=== PATIENT | female | born 1990 | race Two or more races ===

== ENCOUNTER 2022-12-09 20:30 | Inpatient (IN) | payer OTHER ==
[2022-12-09] MEDS ORDERED: SODIUM CHLORIDE 100 ML IVPB ONE (21:20)
[2022-12-09] MEDS ORDERED: AMPICILLIN SODIUM 2 GM VIAL ONE (21:20)
[2022-12-09] MEDS: ELECTROLYTE-148 SOLN 1,000 ML IV SCH (21:30)
[2022-12-09 21:39] LABS: BASO % 0.4 % (0-2.0); EOS % 1.4 % (0-4.5); HEMATOCRIT 37.7 % (32.4-45.2); HEMOGLOBIN 13.1 GM/dL (10.7-15.3); LYMPH % 20.4 % (8-40); MCH 31.1 pg (25.7-33.7); MCHC 34.7 g/dl (32.0-36.0); MEAN CELL VOLUME 89.6 fl (80-96); MEAN PLT VOLUME 9.2 fl (7.5-11.1); MONO % 7.9 % (3.8-10.2); NEUT % 69.9 % (42.8-82.8); PLATELET COUNT 272 10^3/uL (134-434); RBC 4.21 M/mm3 (3.60-5.2); RDW 14.4 % (11.6-15.6)
[2022-12-09 21:43] LABS: INR 0.82 (0.83-1.09); PROTHROMBIN TIME (PATIENT) 9.5 SEC (9.7-13.0)
[2022-12-09] MEDS ORDERED: AMPICILLIN - 2 GM in SODIUM CHLORIDE 100 ML IVPB ONE (21:43)
[2022-12-09 21:46] LABS: ACTIVATED PTT 24.7 SECONDS (25.2-36.5)
[2022-12-09] MEDS ORDERED: BUTORPHANOL TARTRATE 1 MG/ML VIAL IVPUSH ONE (21:47)
[2022-12-09] MEDS ORDERED: PROMETHAZINE HCL 25 MG/1 ML VIAL IVPB ONE (21:47)
[2022-12-09 21:57] LABS: ALBUMIN 2.4 g/dl (3.4-5.0); BLOOD UREA NITROGEN 18.1 mg/dL (7-18)
[2022-12-09 21:59] LABS: CREATININE 0.6 mg/dL (0.55-1.3)
[2022-12-09 22:00] LABS: TOT PROT 6.3 g/dl (6.4-8.2)
[2022-12-09 22:01] LABS: BILIRUBIN,TOTAL 0.2 mg/dL (0.2-1)
[2022-12-09 22:40] VITALS: BMI 34.2
[2022-12-09 22:48] LABS: HIV INTERPRETATION NEGATIVE (NEGATIVE)
[2022-12-10 00:33] LABS: URINE BARBITURATES NEGATIVE (NEGATIVE)
[2022-12-10 00:34] LABS: COCAINE, UR NEGATIVE (NEGATIVE); METHADONE, UR NEGATIVE (NEGATIVE); OPIATES, URI NEGATIVE (NEGATIVE); PHENCYCLIDINE,URINE NEGATIVE (NEGATIVE); URINE BENZODIAZEPINES NEGATIVE (NEGATIVE)
[2022-12-10 01:00] LABS: URINE AMPHETAMINES NEGATIVE (NEGATIVE)
[2022-12-10] MEDS ORDERED: SODIUM CHLORIDE 100 ML IVPB ONE ×6 (01:20→21:13)
[2022-12-10] MEDS ORDERED: AMPICILLIN SODIUM 1 GM VIAL ONE ×6 (01:20→21:13)
[2022-12-10] MEDS: AMPICILLIN - 1 GM in SODIUM CHLORIDE 100 ML IVPB SCH ×6 (01:30→21:30)
[2022-12-10] MEDS: ELECTROLYTE-148 SOLN 1,000 ML IV SCH ×2 (07:51→16:05)
[2022-12-10] MEDS ORDERED: OXYTOCIN 30 UNITS in 0.9% NS 30 UNIT/500 ML INFUS.BAG IVPB ONE (09:33)
[2022-12-10] MEDS ORDERED: OXYTOCIN 30 UNITS in 0.9% NS 30 UNIT/500 ML INFUS.BAG IVPB SCH (09:45)
[2022-12-10] MEDS ORDERED: FENTANYL/BUPIVACAINE/NS/PF - PCEA - 50 ML DISP.SYRIN EP ONE ×3 (12:05→21:29)
[2022-12-10] MEDS ORDERED: FENTANYL CITRATE/PF 50 MCG/ML VIAL ONE ×2 (12:06→20:55)
[2022-12-10] MEDS ORDERED: BUPIVACAINE HCL/PF 0.25% (2.5MG/ML) 10 ML VIAL ONE ×2 (12:06→20:56)
[2022-12-10] MEDS: FENTANYL/BUPIVACAINE/NS/PF - PCEA - 50 ML DISP.SYRIN EP SCH ×2 (12:30→17:52)
[2022-12-10] MEDS ORDERED: NALOXONE HCL 0.4 MG/ML VIAL IVPUSH PRN (12:34)
[2022-12-10] MEDS ORDERED: OXYTOCIN 20 UNITS in 0.9% NS 20 UNIT/1,000 ML INFUS.BAG IV ONE (21:12)
[2022-12-10 21:34] LABS: URIC ACID 5.4 mg/dL (2.6-7.2)
[2022-12-10 22:08] LABS: RETICULOCYTES 2.23 % (0.5-1.5)
[2022-12-10] MEDS ORDERED: WITCH HAZEL 50% (TUCKS) 40 PAD/JAR PAD TP PRN (22:45)
[2022-12-10] MEDS ORDERED: OXYTOCIN 20 UNITS in 0.9% NS 20 UNIT/1,000 ML INFUS.BAG IV SCH (22:45)
[2022-12-10] MEDS ORDERED: BISACODYL 10 MG SUPP.RECT RC PRN (22:45)
[2022-12-10] MEDS ORDERED: ACETAMINOPHEN 325 MG TABLET (FP) PO PRN (22:45)
[2022-12-10] MEDS ORDERED: BENZOCAINE 28 GM HEMORRHOIDAL OINTMENT TP PRN (22:45)
[2022-12-10] MEDS ORDERED: oxyCODONE HCL 5 MG TABLET PO PRN (22:45)
[2022-12-10] MEDS ORDERED: METHYLERGONOVINE MALEATE 0.2 MG/1 ML AMP IM PRN (22:45)
[2022-12-10] MEDS ORDERED: BENZOCAINE 20% 57 GM BOTTLE TP PRN (22:45)
[2022-12-10 23:10] LABS: CORD BASE EXCESS -8.3 mmol/L (0-2); CORD HCO3 18.7 mmHg (20-29); CORD PCO2 43.7 mmHg (30-78); CORD pH 7.249 (7.14-7.44)
[2022-12-10 23:13] LABS: CORD BASE EXCESS -8.8 mmol/L (0-2); CORD HCO3 19.7 mmHg (20-29); CORD PCO2 51.4 mmHg (30-78); CORD pH 7.201 (7.14-7.44)
[2022-12-11 08:54] LABS: BASO % 0.2 % (0-2.0); EOS % 0.3 % (0-4.5); HEMOGLOBIN 12.3 GM/dL (10.7-15.3); LYMPH % 10.4 % (8-40); MCH 30.6 pg (25.7-33.7); MCHC 34.2 g/dl (32.0-36.0); MEAN CELL VOLUME 89.4 fl (80-96); MEAN PLT VOLUME 7.8 fl (7.5-11.1); MONO % 3.2 % (3.8-10.2); NEUT % 85.9 % (42.8-82.8); PLATELET COUNT 234 10^3/uL (134-434); RBC 4.03 M/mm3 (3.60-5.2); RDW 14.8 % (11.6-15.6); WHITE BLOOD COUNT 15.6 K/mm3 (4.0-10.0)
[2022-12-11] MEDS: IBUPROFEN 600 MG TABLET (FP) PO PRN ×2 (13:55→20:02)
[2022-12-11] MEDS ORDERED: SENNOSIDES/DOCUSATE COMBO (SENNA PLUS) TABLET (UD) PO PRN (22:00)
[2022-12-12 10:20] VITALS: BP 132/82; PULSE 83; RESP 18; TEMP 97.8
== END 2022-12-12 12:35 | disposition home or self-care (01) | DRG 560 ==
LOC: JLDR 20:30 → J3W 12-10 23:53
PROVIDERS: ADMIT Obstetrics & Gynecology; ATTEND Obstetrics & Gynecology
PROC: 10E0XZZ Delivery of Products of Conception, External Approach (ICD-10-PCS; principal; 2022-12-10)
DX: O42.92 Full-term premature rupture of membranes, unspecified as to length of time between rupture and onset of labor (principal); O99.824 Streptococcus B carrier state complicating childbirth; Z3A.39 39 weeks gestation of pregnancy; Z37.0 Single live birth
CPT/HCPCS: 36415; 36600; 80053; 80307; 82803; 82977; 83010; 84450; 84460; 84550; 85025; 85032; 85045; 85610; 85730; 86780; 86850; 86900; 86901; 87389; C9803-CS; U0003; U0005